=== PATIENT | female | born 1955 | race Caucasian/White ===

== ENCOUNTER 2017-08-02 07:54 | Day surgery (SDC) | payer OTHER ==
[2017-07-28 09:37] VITALS: BMI 26.0
[~2017-08-02 07:54] MED LIST: ACETAMINOPHEN 325 MG TABLET (FP) PO PRN
[2017-08-02] MEDS ORDERED: FLURBIPROFEN 0.03% OPHTH SOLN 2.5 ML BOTTLE ONE (08:30)
[2017-08-02] MEDS ORDERED: TROPICAMIDE 1% OPHTH SOLN 15 ML BOTTLE ONE (08:31)
[2017-08-02] MEDS ORDERED: CIPROFLOXACIN 0.3% EYE DROPS 5 ML BOTTLE ONE (08:31)
[2017-08-02] MEDS ORDERED: PHENYLEPHRINE 2.5% OPHTH SOLN 15 ML BOTTLE ONE (08:31)
[2017-08-02] MEDS ORDERED: CYCLOPENTOLATE HCL 1% OPHTH SOLN 2 ML BOTTLE ONE (08:31)
[2017-08-02 08:52] VITALS: TEMP 97.7
[2017-08-02] MEDS: PHENYLEPHRINE 2.5% OPHTH SOLN 15 ML BOTTLE OP SCH ×3 (09:00→09:10)
[2017-08-02] MEDS: CIPROFLOXACIN HCL 0.3% OPHTH 2.5ML BOTTLE OP SCH ×3 (09:00→09:10)
[2017-08-02] MEDS: TROPICAMIDE 1% OPHTH SOLN 15 ML BOTTLE OP SCH ×3 (09:00→09:10)
[2017-08-02] MEDS: CYCLOPENTOLATE HCL 1% OPHTH SOLN 2 ML BOTTLE OP SCH ×3 (09:00→09:10)
[2017-08-02] MEDS: FLURBIPROFEN 0.03% OPHTH SOLN 2.5 ML BOTTLE OP SCH ×3 (09:00→09:10)
[2017-08-02] MEDS ORDERED: MIDAZOLAM HCL 2 MG/2 ML SINGLE DOSE VIAL ONE (10:00)
[2017-08-02] MEDS ORDERED: TETRACAINE 0.5% OPHTH SOLN 2 ML BOTTLE TP ONE (10:02)
[2017-08-02] MEDS ORDERED: LIDOCAINE HCL 1% PRESERVATIVE FREE - 30ML VIAL IO ONE (10:15)
[2017-08-02] MEDS ORDERED: CHONDROITIN SU A/HYALUR SOD 1 KIT IO ONE (10:15)
[2017-08-02] MEDS ORDERED: ACETAMINOPHEN 325 MG TABLET (FP) ONE (11:27)
[2017-08-02] MEDS ORDERED: ACETAMINOPHEN 325 MG TABLET (FP) PO ONE (11:29)
[2017-08-02] MEDS ORDERED: TETRACAINE 0.5% OPHTH SOLN 2 ML BOTTLE ONE (11:42)
[2017-08-02] MEDS ORDERED: LIDOCAINE HCL/PF 1% SDV 5ML VIAL ONE (11:42)
[2017-08-02] MEDS ORDERED: EPINEPHrine/PF 1 MG/1 ML (1:1,000) AMPULE ONE (11:42)
[2017-08-02] MEDS ORDERED: IBUPROFEN 400 MG TABLET (FP) PO ONE ×3 (12:06→12:19)
--- NOTE | 2017-08-02 12:27 | SPEC ---
DATE OF OPERATION: 08/02/2017 PREOPERATIVE DIAGNOSIS: Cataract, right eye. POSTOPERATIVE DIAGNOSIS: Cataract, right eye. PROCEDURE: Phacoemulsification of right cataract with posterior chamber intraocular lens implantation. Lens used [id number], 24.0 diopter power, serial No. [id number]. SURGEON: Cami Lewis M.D. ANESTHESIA: Topical MAC. COMPLICATIONS: None. DESCRIPTION OF PROCEDURE: The patient was brought to the operating room and correctly identified along with the operative site and the correct intraocular lens celeste. The patient was then prepped and draped in the usual sterile fashion including 5% Betadine solution in the conjunctival sac and an eyelid drape. An eyelid speculum was then placed in the eye. A paracentesis port was created and approximately 0.5 mL of preservative free Lidocaine was then injected into the eye. Viscoelastic was then injected to inflate the anterior chamber. A temporal clear corneal wound was created. A continuous circular capsulorrhexis was performed. The nucleus was then hydrodissected with BSS and removed with phacoemulsification. The remaining cortical material was irrigated and aspirated. Viscoelastic was injected to inflate the capsular bag and the intraocular lens was then implanted into the capsular bag. The remaining Viscoelastic was irrigated and aspirated from the eye. The IOL was noted to be well centered and completely covered by the anterior capsulorrhexis. Topical vancomycin was placed and the eye patched and shielded. All wounds were tested and found to be watertight. No suture was placed. The eye was then shielded. The patient was then discharged from the operating room in stable condition. CAMI LEWIS M.D. [id number]
[2017-08-02 12:59] VITALS: BP 116/72; PULSE 75
== END 2017-08-02 13:20 | disposition home or self-care (01) ==
LOC: JASU-SURG 07:54
PROVIDERS: ATTEND Ophthalmology
PROC: 08RJ3JZ Replacement of Right Lens with Synthetic Substitute, Percutaneous Approach (ICD-10-PCS; principal; 2017-08-02 10:00)
DX: H26.9 Unspecified cataract (principal)

== ENCOUNTER 2017-08-16 06:54 | Day surgery (SDC) | payer OTHER ==
[2017-08-15 08:35] VITALS: BMI 27.1
[~2017-08-16 06:54] MED LIST changes: -ACETAMINOPHEN 325 MG TABLET (FP) PO PRN; +BSS (NA/CA/MG/K) BALANCED SALT SOLUTION OPHTH SOLN 15 ML BOTTLE OS ONE; +CHONDROITIN SU A/HYALUR SOD 1 KIT IO ONE; +EPINEPHrine/PF 1 MG/1 ML (1:1,000) AMPULE IO ONE; +LIDOCAINE HCL 1% PRESERVATIVE FREE - 30ML VIAL IO ONE; +POVIDONE-IODINE 5% OPHTHALMIC PREP 30 ML SOLUTION OS ONE; +TETRACAINE 0.5% OPHTH SOLN 2 ML BOTTLE OS ONE
[2017-08-16] MEDS ORDERED: TROPICAMIDE 1% OPHTH SOLN 15 ML BOTTLE ONE (07:20)
[2017-08-16] MEDS ORDERED: CYCLOPENTOLATE HCL 1% OPHTH SOLN 2 ML BOTTLE ONE (07:20)
[2017-08-16] MEDS ORDERED: CIPROFLOXACIN 0.3% EYE DROPS 5 ML BOTTLE ONE (07:20)
[2017-08-16] MEDS ORDERED: PHENYLEPHRINE 2.5% OPHTH SOLN 15 ML BOTTLE ONE (07:20)
[2017-08-16] MEDS ORDERED: FLURBIPROFEN 0.03% OPHTH SOLN 2.5 ML BOTTLE ONE (07:20)
[2017-08-16] MEDS ORDERED: EPINEPHrine/PF 1 MG/1 ML (1:1,000) AMPULE ONE (07:25)
[2017-08-16] MEDS ORDERED: LIDOCAINE HCL/PF 1% SDV 5ML VIAL ONE (07:26)
[2017-08-16] MEDS ORDERED: TETRACAINE 0.5% OPHTH SOLN 2 ML BOTTLE ONE (07:26)
[2017-08-16] MEDS ORDERED: TROPICAMIDE 1% OPHTH SOLN 15 ML BOTTLE OS ONE ×3 (07:30→08:22)
[2017-08-16] MEDS ORDERED: PHENYLEPHRINE 2.5% OPHTH SOLN 15 ML BOTTLE OS ONE ×3 (07:30→08:22)
[2017-08-16] MEDS ORDERED: CYCLOPENTOLATE HCL 1% OPHTH SOLN 2 ML BOTTLE OS ONE ×3 (07:30→07:40)
[2017-08-16] MEDS ORDERED: CIPROFLOXACIN HCL 0.3% OPHTH 2.5ML BOTTLE OS ONE ×3 (07:30→08:23)
[2017-08-16] MEDS ORDERED: FLURBIPROFEN 0.03% OPHTH SOLN 2.5 ML BOTTLE OS ONE ×3 (07:30→08:22)
[2017-08-16 07:33] VITALS: TEMP 97.9
[2017-08-16] MEDS ORDERED: ACETAMINOPHEN 325 MG TABLET (FP) PO PRN (07:50)
[2017-08-16] MEDS ORDERED: TROPICAMIDE 1% OPHTH SOLN 15 ML BOTTLE OP SCH (08:00)
[2017-08-16] MEDS ORDERED: CYCLOPENTOLATE HCL 1% OPHTH SOLN 2 ML BOTTLE OP SCH (08:00)
[2017-08-16] MEDS ORDERED: CIPROFLOXACIN HCL 0.3% OPHTH 2.5ML BOTTLE OP SCH (08:00)
[2017-08-16] MEDS ORDERED: PHENYLEPHRINE 2.5% OPHTH SOLN 15 ML BOTTLE OP SCH (08:00)
[2017-08-16] MEDS ORDERED: FLURBIPROFEN 0.03% OPHTH SOLN 2.5 ML BOTTLE OP SCH (08:00)
[2017-08-16] MEDS ORDERED: MIDAZOLAM HCL 2 MG/2 ML SINGLE DOSE VIAL ONE (08:53)
[2017-08-16] MEDS ORDERED: TETRACAINE 0.5% OPHTH SOLN 2 ML BOTTLE OS ONE (09:05)
[2017-08-16] MEDS ORDERED: POVIDONE-IODINE 5% OPHTHALMIC PREP 30 ML SOLUTION OS ONE (09:10)
[2017-08-16] MEDS ORDERED: BSS (NA/CA/MG/K) BALANCED SALT SOLUTION OPHTH SOLN 15 ML BOTTLE OS ONE (09:22)
[2017-08-16] MEDS ORDERED: CHONDROITIN SU A/HYALUR SOD 1 KIT IO ONE (09:22)
[2017-08-16] MEDS ORDERED: LIDOCAINE HCL 1% PRESERVATIVE FREE - 30ML VIAL IO ONE (09:22)
[2017-08-16] MEDS ORDERED: EPINEPHrine/PF 1 MG/1 ML (1:1,000) AMPULE IO ONE (09:26)
--- NOTE | 2017-08-16 10:09 | SPEC ---
DATE OF OPERATION: DATE OF DICTATION: 08/16/2017 PREOPERATIVE DIAGNOSIS: Cataract, left eye. POSTOPERATIVE DIAGNOSIS: Cataract, left eye. OPERATION: Phacoemulsification with posterior chamber intraocular lens implantation, left eye. Lens used SN60WF, 23.5 diopter power, serial number [id number]. SURGEON: Cami Lewis M.D. ANESTHESIA: Topical MAC. COMPLICATIONS: None. PROCEDURE: The patient was brought to the operating room and correctly identified along with the operative site and the correct intraocular lens celeste. The patient was then prepped and draped in the usual sterile fashion including 5% Betadine solution in the conjunctival sac and an eyelid drape. An eyelid speculum was then placed in the eye. A paracentesis port was created and approximately 0.5 mL of preservative free Lidocaine was then injected into the eye. Viscoelastic was then injected to inflate the anterior chamber. A temporal clear corneal wound was created. A continuous circular capsulorrhexis was performed. The nucleus was then hydrodissected with BSS and removed with phacoemulsification. The remaining cortical material was irrigated and aspirated. Viscoelastic was injected to inflate the capsular bag and the intraocular lens was then implanted into the capsular bag. The remaining Viscoelastic was irrigated and aspirated from the eye. The IOL was noted to be well centered and completely covered by the anterior capsulorrhexis. Topical vancomycin was placed and the eye patched and shielded. All wounds were tested and found to be watertight. No suture was placed. The eye was then shielded. The patient was then discharged from the operating room in stable condition. CAMI LEWIS M.D. [id number]
[2017-08-16] MEDS ORDERED: IBUPROFEN 600 MG TABLET (FP) PO ONE ×3 (10:21→10:26)
[2017-08-16 11:17] VITALS: BP 112/53; PULSE 74
== END 2017-08-16 11:30 | disposition home or self-care (01) ==
LOC: JASU-SURG 06:54
PROVIDERS: ATTEND Ophthalmology
PROC: 08RK3JZ Replacement of Left Lens with Synthetic Substitute, Percutaneous Approach (ICD-10-PCS; principal; 2017-08-16 09:00)
DX: H26.9 Unspecified cataract (principal)
CPT/HCPCS: 82962

== ENCOUNTER 2018-11-17 09:37 | Emergency (ER) | payer OTHER ==
[2018-11-17 09:48] VITALS: BP 125/62; PULSE 83; TEMP 98.5; BMI 28.9
--- NOTE | 2018-11-17 10:40 | PDOC ---
*Physical Exam - Vital Signs Last Vital Signs Temp Pulse Resp BP Pulse Ox 98.5 F 83 18 125/62 99 11/17/18 09:38 11/17/18 09:38 11/17/18 09:38 11/17/18 09:38 11/17/18 09:38 Medical Decision Making - Medical Decision Making 11/17/18 10:40 Ms Boggs is a 63 yo F who presents with a complaint of dysuria Pt has a history of HTN, HLD, DM, COPD/asthma She denies prior STD She has had dysuria for the past 4 days Examination reveals ulcer on left labia minora and ulceration so urethra Pt was last seen by dial painter 4 months ago Will do UA, Urine culture Pt asked to follow up with dial painter ARNULFO (herpes vs. aphthous ulcer vs. malignancy) 11/17/18 10:41 *DC/Admit/Observation/Transfer - Referrals Referrals: Joleen Everett MD [Primary Care Provider] - - Patient Instructions - Post Discharge Activity
[2018-11-17 11:19] LABS: BASO % 0.4 % (0-2.0); EOS % 1.4 % (0-4.5); LYMPH % 29.5 % (8-40); MCH 29.6 pg (25.7-33.7); MCHC 33.4 g/dl (32.0-36.0); MEAN CELL VOLUME 88.4 fl (80-96); MEAN PLT VOLUME 8.2 fl (7.5-11.1); MONO % 6.3 % (3.8-10.2); NEUT % 62.4 % (42.8-82.8); PLATELET COUNT 393 K/MM3 (134-434); RBC 4.08 M/mm3 (3.60-5.2); RDW 13.4 % (11.6-15.6)
[2018-11-17 11:25] LABS: EPI CELLS 0.5 /HPF (0-5/HPF); PH,URINE 5.5 (5.0-8.0); URINE APPEARANCE CLEAR; URINE BACTERIA 0.8 /hpf (NEGATIVE); URINE BILIRUBIN NEGATIVE (NEGATIVE); URINE CASTS 0 /lpf (0-8); URINE COLOR YELLOW; URINE GLUCOSE (UA) TRACE (NEGATIVE); URINE KETONE NEGATIVE (NEGATIVE); URINE LEUK ESTERASE TRACE (NEGATIVE); URINE NITRITE NEGATIVE (NEGATIVE); URINE PROTEIN NEGATIVE (NEGATIVE); URINE RBC 2 /hpf (0-4); URINE UROBILINOGEN 0.2 mg/dL (0.2-1.0); URINE WBC 2 /hpf (0-5)
[2018-11-17 11:26] LABS: ALBUMIN 3.8 g/dl (3.4-5.0); ALK PHOS 60 U/L (45-117); ANION GAP 7 MMOL/L (8-16); BILIRUBIN,TOTAL 0.3 mg/dL (0.2-1); BLOOD UREA NITROGEN 9 mg/dL (7-18); CALCIUM 9.7 mg/dL (8.5-10.1); CHLORIDE 107 mmol/L (98-107); CO2 24 mmol/L (21-32); CREATININE 0.6 mg/dL (0.55-1.3); GLUCOSE,RANDOM 124 mg/dL (74-106); POTASSIUM 4.2 mmol/L (3.5-5.1); SGOT/AST 11 U/L (15-37); SGPT/ALT 17 U/L (13-61); SODIUM 139 mmol/L (136-145); TOT PROT 7.6 g/dl (6.4-8.2)
[2018-11-17] MEDS ORDERED: traMADol HCL 50 MG TABLET PO ONE (11:57)
--- NOTE | 2018-11-17 12:07 | PDOC ---
History of Present Illness - General Chief Complaint: Urinary Problem Stated Complaint: UTI Time Seen by Provider: 11/17/18 10:01 History Source: Patient - History of Present Illness Timing/Duration: reports: constant Quality: reports: severe Past History - Past Medical History Allergies/Adverse Reactions: Allergies Allergy/AdvReac Type Severity Reaction Status Date / Time aspirin AdvReac Severe burning Verified 11/17/18 09:43 Home Medications: Ambulatory Orders Aspirin 81 mg PO DAILY 07/28/17 Divalproex Sodium [Depakote] 250 mg PO BID 08/02/17 Metformin HCl [Glucophage] 1,000 mg PO BID 08/02/17 Simvastatin 5 mg PO DAILY 08/02/17 Zolpidem Tartrate 10 mg PO HS PRN 08/02/17 Fluconazole [Diflucan] 150 mg PO ASDIR #2 tablet 11/17/18 Nystatin/Triamcin [Nystatin-Triamcinolone Cream] 15 gm TP ASDIR #1 cream..g. Tramadol HCl 50 mg PO Q6H #15 tablet MDD 200mg 11/17/18 Anemia: No Asthma: Yes Cancer: No Cardiac Disorders: No CVA: No COPD: Yes CHF: No Dementia: No Diabetes: Yes (TYPE 2) GI Disorders: No Disorders: No HTN: Yes Hypercholesterolemia: Yes Liver Disease: No Seizures: No Thyroid Disease: No Other medical history: emphysimia - Surgical History Abdominal Surgery: No Appendectomy: No Cardiac Surgery: No Cholecystectomy: No Lung Surgery: No Neurologic Surgery: No Orthopedic Surgery: No - Suicide/Smoking/Psychosocial Hx Smoking History: Never smoked Hx Alcohol Use: Yes (BEER/socially) Drug/Substance Use Hx: No Substance Use Type: None Hx Substance Use Treatment: No Review of Systems - Review of Systems Constitutional: No: Chills, Fever, Unexplained wgt Loss ABD/GI: No: Nausea, Vomiting, Abdominal cramping : Yes: Dysuria. No: Discharge, Flank Pain *Physical Exam - Vital Signs Last Vital Signs Temp Pulse Resp BP Pulse Ox 98.5 F 83 18 125/62 99 11/17/18 09:38 11/17/18 09:38 11/17/18 09:38 11/17/18 09:38 11/17/18 09:38 - Physical Exam General Appearance: Yes: Appropriately Dressed, Moderate Distress HEENT: positive: Normal Voice Neck: positive: Supple Respiratory/Chest: negative: Respiratory Distress Female Pelvic Exam: positive: other (adherent ,sharply demarcated, white plaque located to vestibule b/l, sig ttp w/ copious amount of milky white disharge in vaginal vault, no intravaginal/cervical lesion noted) Gastrointestinal/Abdominal: positive: Soft. negative: Tender Musculoskeletal: negative: CVA Tenderness Integumentary: positive: Dry, Warm Neurologic: positive: Fully Oriented, Alert, Normal Mood/Affect ED Treatment Course - LABORATORY CBC & Chemistry Diagram: 11/17/18 10:54 11/17/18 10:54 - ADDITIONAL ORDERS Additional order review: Laboratory Results 11/17/18 11/17/18 10:54 10:54 Sodium 139 Potassium 4.2 Chloride 107 Carbon Dioxide 24 Anion Gap 7 L BUN 9 Creatinine 0.6 Creat Clearance w eGFR 100.65 Random Glucose 124 H Calcium 9.7 Total Bilirubin 0.3 AST 11 L ALT 17 Alkaline Phosphatase 60 Total Protein 7.6 Albumin 3.8 Urine Color Yellow Urine Appearance Clear Urine pH 5.5 Ur Specific [place] 1.016 Urine Protein Negative Urine Glucose (UA) Trace Urine Ketones Negative Urine Blood Negative Urine Nitrite Negative Urine Bilirubin Negative Urine Urobilinogen 0.2 Ur Leukocyte Esterase Trace Urine WBC (Auto) 2 Urine RBC (Auto) 2 Urine Casts (Auto) 0 U Epithel Cells (Auto) 0.5 Urine Bacteria (Auto) 0.8 11/17/18 10:54 RBC 4.08 MCV 88.4 MCHC 33.4 RDW 13.4 MPV 8.2 Neutrophils % 62.4 Lymphocytes % 29.5 Monocytes % 6.3 Eosinophils % 1.4 Basophils % 0.4 Medical Decision Making - Medical Decision Making 11/17/18 12:17 63-year-old female, history of hypertension, NIDDM, here with family vaginal itching and pain. Patient states for the past 4 days, has had intense itching to genital area and at some point developed severe pain to site that worsens with comes in contact with urine. Denies any discharge, rash, hematuria, frequency, flank pain, nausea or vomiting. States she has not been sexually active in over a year and denies any history of STD or similar episode. Of note , patient states her diabetes is not very well controlled and at times has sugar in the 200s at home. Does not remember her last hemoglobin A1c result See exam Vulvar itching w/ ulcers Not currently sexually active No unexplained weight loss ? candidiases (given significant itching/vag discharge in poorly controlled DM) vs vulvar apthous ulcers, less likely HSV (no sexual activity x > 1 years w/ no prior genital ulcers per hx), r/o SCC -pain control -diflucan -labs including HSV serology -anticipate dc w/ [facility] f/u 11/17/18 12:50 Labs unremarkable. Patient given first dose of Diflucan here. Given severity of symptoms, will send additional doses totaling 3 doses 72 hours apart. Patient also given antifungal/steroid topical cream to use only for 2 days until Diflucan becomes effective. States she has an appointment with her PMD next week for a [facility] referral and will follow up. 11/17/18 12:54 *DC/Admit/Observation/Transfer Diagnosis at time of Disposition: Genital ulcer, female - Discharge Dispostion Disposition: HOME Condition at time of disposition: Improved - Prescriptions Prescriptions: Fluconazole [Diflucan] 150 mg PO ASDIR #2 tablet Nystatin/Triamcin [Nystatin-Triamcinolone Cream] 15 gm TP ASDIR #1 cream..g. Tramadol HCl 50 mg PO Q6H #15 tablet MDD 200mg - Referrals Referrals: Joleen Everett MD [Primary Care Provider] - - Patient Instructions Additional Instructions: La causa de nawaf lceras vaginales no est huma en ophelia momento, blossom le hemos tratado por ken posible infeccin de levadura, que puede causar lceras vaginales, erupciones y picazn. Te dimos la primera dosis de diflucan en la disfuncin erctil. Le prescribimos 2 comprimidos ms. Lilo ken tableta en 3 hansen a partir de hoy y la segunda tableta 3 hansen despus de eso. Tambin prescribimos ken crema esteroide para usar en el sitio afectado solo karmen los primeros 2 hansen hasta que las pastillas se activen. Tambin enviamos ken prueba para el virus del herpes y obtendremos resultados positivos en 2 a 3 hansen. Bedoya orina aqu no muestra signos de infeccin. Deber realizar un seguimiento con bedoya PMD la prxima semana para obtener ken referencia ginecolgica para ken evaluacin adicional y ken posible biopsia de la lesin para descartar ken neoplasia maligna. Mientras tanto, lilo los medicamentos segn lo prescrito. Kym puede sumergir bedoya yoly genital en agua tibia a caliente para aliviar la inflamacin. Regrese a la kvng de emergencias para el empeoramiento de los sntomas christine se discuti hoy - Post Discharge Activity
[2018-11-17] MEDS ORDERED: traMADol HCL 50 MG TABLET ONE (12:22)
[2018-11-17] MEDS ORDERED: FLUCONAZOLE 50 MG TABLET PO ONE (12:24)
[2018-11-17] MEDS ORDERED: FLUCONAZOLE 100 MG TABLET (UD) ONE (12:27)
== END 2018-11-17 12:45 | disposition home or self-care (01) ==
LOC: JER 09:37
DX: N76.6 Ulceration of vulva (principal); N34.2 Other urethritis; I10 Essential (primary) hypertension; E11.9 Type 2 diabetes mellitus without complications; Z79.84 Long term (current) use of oral hypoglycemic drugs; E78.00 Pure hypercholesterolemia, unspecified; J45.909 Unspecified asthma, uncomplicated; J44.9 Chronic obstructive pulmonary disease, unspecified
CPT/HCPCS: 36415; 80053; 81003; 85025; 86694; 86695; 86696; 87086; 99281-25

== ENCOUNTER 2021-08-06 11:27 | Emergency (ER) | payer OTHER ==
[2021-08-06 11:41] VITALS: TEMP 98.2; BMI 24.5
[2021-08-06 13:41] LABS: BASO % 0.6 % (0-2.0); EOS % 3.1 % (0-4.5); HEMATOCRIT 42.9 % (32.4-45.2); HEMOGLOBIN 14.2 GM/dL (10.7-15.3); MCH 28.9 pg (25.7-33.7); MCHC 33.2 g/dl (32.0-36.0); MEAN CELL VOLUME 87.1 fl (80-96); MEAN PLT VOLUME 8.4 fl (7.5-11.1); MONO % 7.2 % (3.8-10.2); NEUT % 57.1 % (42.8-82.8); PLATELET COUNT 251 10^3/uL (134-434); RBC 4.92 M/mm3 (3.60-5.2); RDW 12.6 % (11.6-15.6); WHITE BLOOD COUNT 6.9 K/mm3 (4.0-10.0)
[2021-08-06 14:04] LABS: CHLORIDE 107 mmol/L (98-107); SODIUM 140 mmol/L (136-145)
[2021-08-06 14:06] LABS: CALCIUM 9.3 mg/dL (8.5-10.1)
[2021-08-06 14:07] LABS: ALBUMIN 4.2 g/dl (3.4-5.0); ANION GAP 10 MMOL/L (8-16); BLOOD UREA NITROGEN 17.2 mg/dL (7-18); CO2 23 mmol/L (21-32); GLUCOSE,RANDOM 91 mg/dL (74-106); MAGNESIUM 2.4 mg/dL (1.8-2.4)
[2021-08-06 14:10] LABS: CREATININE 0.8 mg/dL (0.55-1.3); SGOT/AST 23 U/L (15-37); SGPT/ALT 26 U/L (13-61)
[2021-08-06 14:12] LABS: BILIRUBIN,TOTAL 0.4 mg/dL (0.2-1); TOT PROT 7.9 g/dl (6.4-8.2)
[2021-08-06 14:13] LABS: ALK PHOS 68 U/L (45-117)
[2021-08-06 14:48] VITALS: BP 108/62; PULSE 99
[2021-08-07 11:07] LABS: SARS-CoV-2 NAA Detected (Not Detected)
== END 2021-08-06 14:48 | disposition home or self-care (01) ==
LOC: JER 11:27
DX: R05.9 Cough, unspecified (principal)
CPT/HCPCS: 71046-TC-FY; 80053; 82550; 83735; 84484; 85025; 87804; 87807; 93005; 93010; 99283-25; C9803; U0003; U0005